=== PATIENT | female | born 1965 | race Caucasian/White ===

== ENCOUNTER 2017-03-13 00:33 | Emergency (ER) | payer MEDICAID ==
[~2017-03-13] VITALS: Ht 165.1 cm; Wt 49.0 kg
[~2017-03-13 00:33] MED LIST: ALBU6.7H INH; BUDE10.2 INH; CELE200C PO; LORA-445 PO; METH500T7 PO; RANI150C PO
[2017-03-13] MEDS ORDERED: PHENYLEPHRINE NASAL 1%, 15ML SPRAY NAS ONE (01:00)
[2017-03-13] MEDS ORDERED: PHENYLEPHRINE NASAL 1%, 15ML SPRAY ONE (01:22)
[2017-03-13] MEDS ORDERED: ONDANSETRON ODT 8 MG ONE (02:35)
[2017-03-13] MEDS ORDERED: ONDANSETRON ODT 8 MG PO ONE (03:00)
[2017-03-13] MEDS ORDERED: AMOXICILLIN 500 MG CAPSULE PO SCH (04:00)
[2017-03-13 04:13] VITALS: BP 134/90
== END 2017-03-13 05:00 | disposition home or self-care (01) ==
LOC: ED 01:04
DX: R04.0 Epistaxis (principal); J45.909 Unspecified asthma, uncomplicated; K21.9 Gastro-esophageal reflux disease without esophagitis
CPT/HCPCS: 99283; Q0162

== ENCOUNTER 2017-03-15 09:06 | Emergency (ER) | payer MEDICAID ==
[~2017-03-15] VITALS: Ht 165.1 cm; Wt 46.4 kg
[2017-03-15 09:11] VITALS: BP 146/82
== END 2017-03-15 10:30 | disposition home or self-care (01) ==
LOC: ED 10:10
DX: R04.0 Epistaxis (principal); K21.9 Gastro-esophageal reflux disease without esophagitis; J45.909 Unspecified asthma, uncomplicated
CPT/HCPCS: 99283

== ENCOUNTER → 2018-11-16 | Outpatient (CLI) | payer MEDICAID | END | disposition home or self-care (01) | LOC: CFH 08:15 | PROVIDERS: ATTEND Registered Nurse | DX: R05 Cough (principal) | CPT/HCPCS: 71250 ==

== ENCOUNTER 2019-01-28 10:10 | Emergency (ER) | payer MEDICAID ==
[~2019-01-28] VITALS: Ht 165.1 cm; Wt 47.9 kg
[2019-01-28 10:13] VITALS: BP 127/82
--- NOTE | 2019-01-28 10:45 | NUR ---
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 RIGHT FOOT PAIN WITH ABRASION LEFT KNEE
== END 2019-01-28 12:06 | disposition home or self-care (01) ==
LOC: ED 11:38
DX: S90.31XA Contusion of right foot, initial encounter (principal); S80.212A Abrasion, left knee, initial encounter; K21.9 Gastro-esophageal reflux disease without esophagitis; J45.909 Unspecified asthma, uncomplicated; W01.0XXA Fall on same level from slipping, tripping and stumbling without subsequent striking against object, initial encounter; Y93.01 Activity, walking, marching and hiking; Y92.009 Unspecified place in unspecified non-institutional (private) residence as the place of occurrence of the external cause; Y99.8 Other external cause status
CPT/HCPCS: 99283

== ENCOUNTER → 2019-02-22 | Outpatient (CLI) | payer MEDICAID | END | disposition home or self-care (01) | LOC: CFH 11:14 | PROVIDERS: ATTEND Family Medicine | DX: S99.921A Unspecified injury of right foot, initial encounter (principal); X58.XXXA Exposure to other specified factors, initial encounter; Y93.89 Activity, other specified; Y92.89 Other specified places as the place of occurrence of the external cause; Y99.8 Other external cause status ==

== ENCOUNTER 2020-03-27 21:21 | Emergency (ER) | payer MEDICAID ==
[~2020-03-27] VITALS: Ht 165.1 cm; Wt 48.4 kg
[~2020-03-27 21:21] MED LIST changes: -ALBU6.7H INH; +ALBU6.7H8 INH
--- NOTE | 2020-03-27 23:09 | NUR ---
PT AMBULATED STEADILY TO ROOM FROM TRIAGE. NAD NOTED
[2020-03-27] MEDS ORDERED: IBUPROFEN 200 MG TABLET PO ONE (23:30)
[2020-03-28] MEDS ORDERED: IBUPROFEN 200 MG TABLET ONE (00:13)
[2020-03-28 00:17] VITALS: BP 143/90
--- NOTE | 2020-03-28 00:18 | NUR ---
PT MEDICATED PER EMAR FOR PAIN. ERP AT BEDSIDE . AWAITING US READ
--- NOTE | 2020-03-28 01:00 | NUR ---
DC EDUCATION PROVIDED, PT DEMONSTRATED UNDERSTANDING. PT AMBULATED STEADILY TO DC WITH RN
== END 2020-03-28 01:15 | disposition home or self-care (01) ==
LOC: ED 21:51
DX: S80.12XA Contusion of left lower leg, initial encounter (principal); J45.909 Unspecified asthma, uncomplicated; K21.9 Gastro-esophageal reflux disease without esophagitis; W20.8XXA Other cause of strike by thrown, projected or falling object, initial encounter; Y93.89 Activity, other specified; Y92.89 Other specified places as the place of occurrence of the external cause; Y99.8 Other external cause status
CPT/HCPCS: 99283